=== PATIENT | male | born 1965 | race Caucasian/White ===

== ENCOUNTER 2021-03-15 14:24 | Emergency (ER) | payer OTHER ==
[~2021-03-15] VITALS: Ht 188 cm; Wt 122.7 kg
[~2021-03-15 14:24] MED LIST: ALBU18HF2 IH; CITA20TA28 PO; CYCL-394 PO; IBUP-1051 PO; TRAZ-91 PO; ZOLP5TAB8 PO
[2021-03-15] MEDS ORDERED: ketorolac tromethamine 15mg/ml inj. IM ONE (15:30)
[2021-03-15] MEDS ORDERED: acetaminophen 325mg tablet PO ONE (15:30)
[2021-03-15] MEDS ORDERED: GABA-530 PO (17:16)
[2021-03-15] MEDS ORDERED: gabapentin 100mg capsule PO ONE (17:35)
[2021-03-15] MEDS ORDERED: normal saline 1000ML IV soln IVB ONE (17:50)
--- NOTE | 2021-03-15 18:12 | NUR ---
While going over discharge paperwork with pt, he became dizzy while sitting up. Discharge held for further evaluation.
[2021-03-15 18:24] LABS: BASOPHILS % (AUTO) 0.8 % (0-1); EOSINOPHILS # (AUTO) 0.1 X10'3 (0-0.9); EOSINOPHILS % (AUTO) 2.2 % (0-6); HEMATOCRIT 48.2 % (42.0-52.0); HEMOGLOBIN 16.3 g/dl (14.0-17.9); LYMPHOCYTES # (AUTO) 2.1 X10'3 (1.1-4.8); LYMPHOCYTES % (AUTO) 35.1 % (21-51); MEAN CORPUSCULAR HEMOGLOBIN 30.7 PG (27.0-31.0); MEAN CORPUSCULAR HGB CONC 33.9 g/dL (33.0-36.5); MEAN CORPUSCULAR VOLUME 90.7 FL (78-98); MEAN PLATELET VOLUME 8.5 FL (7.4-10.4); MONOCYTES # (AUTO) 1.1 X10'3 (0-0.9); NEUTROPHILS # (AUTO) 2.7 X10'3 (1.8-7.7); NEUTROPHILS % (AUTO) 43.9 % (42-75); PLATELET COUNT 334 X10'3 (140-440); RED BLOOD COUNT 5.32 X10'6 (4.70-6.10); RED CELL DISTRIBUTION WIDTH 14.3 % (11.5-14.5)
[2021-03-15 18:41] LABS: ALANINE AMINOTRANSFERASE 80 U/L (12-78); ALBUMIN 3.7 G/DL (3.4-5.0); ALBUMIN/GLOBULIN RATIO 0.9 (1.1-1.5); ALKALINE PHOSPHATASE 118 IU/L (46-116); ANION GAP 11 (8-16); ASPARTATE AMINO TRANSFERASE 63 U/L (10-37); BILIRUBIN,TOTAL 0.6 MG/DL (0.1-1.0); BLOOD UREA NITROGEN 11 MG/DL (7-18); BUN/CREATININE RATIO 11.6 (5.4-32.0); CALCIUM 9.3 MG/DL (8.5-10.1); CHLORIDE 103 MMOL/L (99-107); CREATININE 0.95 MG/DL (0.60-1.10); GLUCOSE 95 MG/DL (70-104); POTASSIUM 4.3 MMOL/L (3.5-5.1); SODIUM 137 MMOL/L (135-145); TOTAL CARBON DIOXIDE 23.1 MMOL/L (24-32); eGFR 83 ML/MIN
[2021-03-15 19:28] VITALS: BP 128/87
[2021-03-15 19:49] LABS: TOTAL CELLS COUNTED 100
[2021-03-15 19:50] LABS: PLATELET ESTIMATE NORMAL
== END 2021-03-15 19:55 | disposition home or self-care (01) ==
LOC: ER 14:25
DX: U07.1 COVID-19 (principal); M79.601 Pain in right arm; M25.511 Pain in right shoulder; R20.2 Paresthesia of skin; J45.909 Unspecified asthma, uncomplicated; G89.29 Other chronic pain; Z79.899 Other long term (current) drug therapy
CPT/HCPCS: 36415; 73030; 73080; 80053; 85007; 85025; 87635; 93931; 96360; 96361; 96372; 99285; C9803; J1885; J7030